=== PATIENT | female | born 1985 | race Caucasian/White ===

== ENCOUNTER 2016-04-05 18:59 | Emergency (ER) | payer MEDICAID ==
[~2016-04-05] VITALS: Ht 162.6 cm; Wt 93.5 kg
[~2016-04-05 18:59] MED LIST: METH10TA2 PO
[2016-04-05 19:08] VITALS: Ht 162.6 cm; Wt 93.5 kg
--- NOTE | 2016-04-05 22:08 | ERD ---
ER Documentation Chief Complaint Date/Time DATE: 04/05/16 TIME: 22:02 Chief Complaint painful urination x 2 days HPI The patient is a 30-year-old female here with multiple painful and burning tiny lesions to her vaginal and perianal areas 2 days. She denies any recent illness , vaginal discharge, vaginal pain, pelvic pain, abdominal pain, flank pain, dysuria, fever, chills, nausea, vomiting, diarrhea, headache, dizziness, lightheadedness, chest pain, or any other symptoms or concerns. ROS All systems reviewed and are negative except as per history of present illness. Medications Home Meds Active Scripts Nitrofurantoin Monohyd Macrocr (Macrobid) 100 Mg Capsr, 100 MG PO BID for 7 Days , CAP Prov:WILBUR LARKIN, PROCESS ASSISTANT 04/05/16 Hydrocodone/Acetaminophen ([place] 5-325 Tablet) 1 Each Tablet, 1 EACH PO TID for PAIN, #9 TAB Prov:WILBUR LARKIN, EMILY 04/05/16 Acyclovir* (Acyclovir*) 200 Mg Capsule, 200 MG PO 5 TIMES DAILY for 10 Days, CAP Prov:WILBUR LARKIN, PROCESS ASSISTANT 04/05/16 Reported Medications Methadone Hcl* (Methadone*) 10 Mg Tab, 65 MG PO, TAB 08/31/13 Allergies Allergies: Coded Allergies: No Known Allergy (Unverified , 08/30/13) PMhx/Soc Medical and Surgical Hx: pt denies Medical Hx, pt denies Surgical Hx Hx Alcohol Use: No Hx Substance Use: No Hx Tobacco Use: No Smoking Status: Never smoker Physical Exam Vitals Vital Signs Date Time Temp Pulse Resp B/P Pulse Ox O2 Delivery O2 Flow Rate FiO2 04/05/16 23:13 98.8 78 18 130/81 100 Room Air 04/05/16 19:08 97.8 87 20 135/77 100 Physical Exam INITIAL VITAL SIGNS: Reviewed by me GENERAL: Alert. Well developed and well nourished. No respiratory distress HEAD: Head is normocephalic. Atraumatic. EYES: EOMI. PERRL. No scleral icterus. No conjunctival injection. ENT: External ears, nose, and mouth normal. Nasal passages patent. Moist mucous membranes. NECK: Supple. Full range of motion. Trachea midline. RESPIRATORY: No tachypnea. Clear to auscultation bilaterally. No wheezing, rales , or rhonchi. CV: Regular rate and rhythm. No murmurs, rubs, or gallops ABDOMEN: Soft, non-distended, non-tender. No guarding. No rebound. No masses. Bowel sounds normal in all quadrants. BACK: No CVA tenderness. Full ROM. : + Vulva and perianal area with multiple subcentimeter vesicular lesions. EXTREMITIES: No obvious deformity. No clubbing or cyanosis. No edema. SKIN: Warm and dry. No diaphoresis. No obvious rashes or lesions. NEUROLOGIC: Alert and oriented x 3. Appropriate. Face is symmetric. Speech is normal. Moves all extremities equally. Results 24 hrs Laboratory Tests Test 04/05/16 21:54 Urine Bacteria FEW Urine Bilirubin NEGATIVE Urine Clarity CLEAR Urine Color LT. YELLOW Urine Glucose NEGATIVE% Urine Hemoglobin TRACE Urine Ketones NEGATIVE Urine Leukocyte Esterase TRACE Urine Microscopic RBC 0-2/HPF Urine Microscopic WBC 5-10/HPF Urine Nitrite NEGATIVE Urine Specific [place] 1.025 Urine Squamous Epithelial Cells MODERATE Urine Total Protein NEGATIVE Urine Urobilinogen 0.2 E.U./dL Urine pH 5.5 Procedures/MDM Nursing Notes Reviewed Previous Medical Records requested via [employer]. EMERGENCY DEPARTMENT COURSE / MEDICAL DECISION MAKING: The patient comes to the ED secondary to multiple tiny subcentimeter lesions to the vulva and perianal areas 2 days. Differential diagnosis upon initial evaluation includes but is not limited to: Syphilis, chancroid, lymphogranuloma venereum, contact dermatitis, shingles, herpes simplex virus, and others The case was discussed with supervising physician Dr. Concepcion. Urine : negative Urinalysis: +infection The patient's history of present illness, clinical presentation, and physical exam are most consistent with herpes simplex virus with multiple tiny vesicular lesions that are painful and feel like they are burning. Final pressure and: Herpes simplex virus, uti Based on patient's history of present illness and physical examination the decision was made to discharge.There is no evidence of life threatening injuries or illnesses at this time. On re-examination, patient resting in no distress, stable vital signs, reports feeling better and safe for discharge with outpatient follow up with PMD in 2-3 days. Patient given return precautions. Prescription Acyclovir [place] Macrobid Departure Diagnosis: Primary Impression: Herpes simplex Additional Impression: UTI (urinary tract infection) Urinary tract infection type: acute cystitis Hematuria presence: without hematuria Qualified Code: N30.00 - Acute cystitis without hematuria Condition: WILBUR Bentley NP Apr 05, 2016 22:08
[2016-04-05 22:23] LABS: ADD UMIC YES; URINE BILIRUBIN (Dip) NEGATIVE (NEGATIVE); URINE BLOOD (Dip) TRACE (NEGATIVE); URINE COLOR LT. YELLOW (YELLOW); URINE GLUCOSE (Dip) NEGATIVE (NEGATIVE); URINE KETONES (Dip) NEGATIVE (NEGATIVE); URINE LEUKOCYTE ESTERASE (Dip) TRACE (NEGATIVE); URINE NITRITE (Dip) NEGATIVE (NEGATIVE); URINE TOTAL PROTEIN (Dip) NEGATIVE (NEGATIVE); URINE UROBILINOGEN (Dip) 0.2 E.U./dL (0.1-1.0)
[2016-04-05 22:57] LABS: SQUAMOUS EPITHELIAL CELL,UR MODERATE
[2016-04-05 22:58] LABS: BACTERIA,URINE FEW; URINE RBCS 0-2 /HPF (0)
[2016-04-05] MEDS ORDERED: HYDR-906 PO (23:04)
[2016-04-05] MEDS ORDERED: ACYC200C2 PO (23:04)
[2016-04-05] MEDS ORDERED: NITR-58 PO (23:04)
[2016-04-05 23:13] VITALS: BP 130/81; PULSE 78; RESP 18; TEMP 98.8
== END 2016-04-05 23:08 | disposition home or self-care (01) ==
LOC: FTE 18:59
DX: B00.9 Herpesviral infection, unspecified (principal); N30.00 Acute cystitis without hematuria
CPT/HCPCS: 81001; Z7502; 81003; 99284